=== PATIENT | female | born 1970 | race Caucasian/White ===

== ENCOUNTER 2017-05-27 01:46 | Inpatient (IN) | payer OTHER ==
[~2017-05-27 01:46] MED LIST: BUPR150CR PO; BUSP15TA PO; CYMB30CA PO; ESTR2TAB4 PO; GABA800T PO; LEVO75TA3 PO; METH500T3 PO; METO50TA PO; MOBI15TA PO; OMEP40CA2 PO; PRIN20TA2 PO; REST30CA PO; TRAZ100T5 PO; ZYRT10CA PO
[2017-05-27 01:59] VITALS: O2SAT 99
[2017-05-27 03:00] VITALS: BP 160/92; PULSE 80; RESP 16; O2SAT 98
[2017-05-27] MEDS ORDERED: DIPHTH/TETANUS/ACEL PERTUSSIS (BOOSTER) 0.5 ML VIAL/PFS IM ONE ×2 (04:06→07:03)
[2017-05-27] MEDS ORDERED: SODIUM CHLOR 0.9% 1000 ML INJ 1,000 ML IV ONE (04:15)
[2017-05-27] MEDS ORDERED: ONDANSETRON HCL 4 MG/2 ML VIAL IV ONE ×2 (04:15→07:15)
[2017-05-27] MEDS ORDERED: MORPHINE SULFATE 4 MG/ML INJ IV ONE (04:15)
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
[2017-05-27 04:50] LABS: AUTOMATED NEUTROPHIL # 3.7 TH/MM3 (1.8-7.7); BASOPHIL % 0.4 % (0.0-2.0); EOSINOPHIL # 0.2 TH/MM3 (0-0.4); EOSINOPHIL % 2.7 % (0.0-4.0); HEMATOCRIT 39.4 % (35.0-46.0); HEMO FLAGS DIFF FINAL; LYMPH % 46.6 % (9.0-44.0); LYMPHOCYTE # 3.9 TH/MM3 (1.0-4.8); MEAN CELL VOLUME 90.9 FL (80.0-100.0); MEAN CORPUSCULAR HEMOGLOBIN 30.5 PG (27.0-34.0); MEAN CORPUSCULAR HGB CONC 33.6 % (32.0-36.0); MONO % 5.9 % (0.0-8.0); NEUT % 44.4 % (16.0-70.0); PLATELET COUNT 312 TH/MM3 (150-450); RED BLOOD COUNT 4.34 MIL/MM3 (4.00-5.30); RED CELL DISTRIBUTION WIDTH 13.9 % (11.6-17.2); WHITE BLOOD COUNT 8.4 TH/MM3 (4.0-11.0)
[2017-05-27] MEDS ORDERED: METO50TA PO (04:57)
[2017-05-27] MEDS ORDERED: LISI40TA PO (04:57)
[2017-05-27] MEDS ORDERED: XANA1TAB2 PO (04:57)
[2017-05-27] MEDS ORDERED: TRAZ50TA12 PO (04:57)
[2017-05-27] MEDS ORDERED: OMEP40CA2 PO (04:57)
[2017-05-27] MEDS ORDERED: CLON0.1T PO (04:57)
[2017-05-27] MEDS ORDERED: ESTR2TAB PO (04:57)
[2017-05-27] MEDS ORDERED: TEMA7.5C PO (04:57)
[2017-05-27] MEDS ORDERED: GABA300C5 PO (04:57)
[2017-05-27] MEDS ORDERED: LEVO75TA3 PO (04:57)
[2017-05-27] MEDS ORDERED: LORazepam 2 MG/ML VIAL IV PUSH ONE (05:00)
[2017-05-27 05:06] LABS: PROTHROMBIN TIME - PATIENT 10.5 SEC (9.8-11.6)
[2017-05-27 05:38] LABS: ALCOHOL 67 MG/DL (0-5)
[2017-05-27 05:40] LABS: I-STAT SODIUM 143 MMOL/L (138-146)
[2017-05-27 07:15] VITALS: BP 193/91; PULSE 73; RESP 16; O2SAT 100
[2017-05-27] MEDS ORDERED: METOPROLOL SUCCINATE 50 MG EXTENDED RELEASE TAB PO ONE (07:15)
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
[2017-05-27 12:00] VITALS: BP 164/78; PULSE 70; RESP 16
[2017-05-27] MEDS ORDERED: MAGNESIUM HYDROXIDE SUSP 30 ML CUP PO PRN (16:45)
[2017-05-27] MEDS ORDERED: ACETAMINOPHEN 325 MG TAB PO PRN (16:45)
[2017-05-27] MEDS ORDERED: LORazepam 2 MG/ML VIAL IM PRN (16:45)
[2017-05-27] MEDS ORDERED: ALUMINUM/MAGNESIUM/SIMETH 30 ML CUP PO PRN (16:45)
[2017-05-27] MEDS ORDERED: LORazepam 1 MG TAB PO PRN (16:45)
[2017-05-27] MEDS ORDERED: TEMAZEPAM 7.5 MG CAP PO PRN (16:45)
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
[2017-05-27] MEDS ORDERED: MELOXICAM 7.5 MG TAB PO ONE (18:00)
[2017-05-27 18:16] VITALS: BP 180/98; PULSE 73; RESP 16; O2SAT 98
[2017-05-27 18:31] VITALS: BP 180/99
[2017-05-27] MEDS: cloNIDine HCL 0.1 MG TAB PO SCH (21:00)
[2017-05-27] MEDS: GABAPENTIN 300 MG CAP PO SCH (21:00)
[2017-05-27] MEDS: METOPROLOL TARTRATE 50 MG TAB PO SCH (21:00)
[2017-05-27] MEDS: QUEtiapine FUMARATE 200 MG TAB PO SCH (21:00)
[2017-05-28] MEDS: LEVOTHYROXINE SODIUM 75 MCG TAB PO SCH (05:24)
[2017-05-28 05:37] VITALS: BP 145/83; PULSE 70; RESP 18; TEMP 97.2; O2SAT 99
[2017-05-28] MEDS: METOPROLOL TARTRATE 50 MG TAB PO SCH ×2 (09:39→20:13)
[2017-05-28] MEDS: PANTOPRAZOLE SOD 40 MG DELAYED RELEASE TAB PO SCH (09:39)
[2017-05-28] MEDS: LISINOPRIL 20 MG TAB PO SCH (09:39)
[2017-05-28] MEDS: MELOXICAM 7.5 MG TAB PO SCH (09:39)
[2017-05-28] MEDS: cloNIDine HCL 0.1 MG TAB PO SCH ×2 (09:39→20:13)
[2017-05-28] MEDS: ESTRADIOL 1 MG TAB PO SCH (09:40)
[2017-05-28] MEDS: ALPRAZolam 1 MG TAB PO PRN ×2 (10:07→23:40)
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
[2017-05-28 13:48] LABS: AUTOMATED NEUTROPHIL # 7.6 TH/MM3 (1.8-7.7); BASOPHIL # 0.1 TH/MM3 (0-0.2); BASOPHIL % 0.8 % (0.0-2.0); EOSINOPHIL # 0.3 TH/MM3 (0-0.4); EOSINOPHIL % 2.2 % (0.0-4.0); HEMATOCRIT 39.7 % (35.0-46.0); HEMO FLAGS DIFF FINAL; LYMPH % 32.1 % (9.0-44.0); LYMPHOCYTE # 4.1 TH/MM3 (1.0-4.8); MEAN CELL VOLUME 91.9 FL (80.0-100.0); MEAN CORPUSCULAR HEMOGLOBIN 30.4 PG (27.0-34.0); MONO % 5.7 % (0.0-8.0); NEUT % 59.2 % (16.0-70.0); PLATELET COUNT 318 TH/MM3 (150-450); RED BLOOD COUNT 4.32 MIL/MM3 (4.00-5.30); WHITE BLOOD COUNT 12.8 TH/MM3 (4.0-11.0)
[2017-05-28 14:09] LABS: ANION GAP 8 MEQ/L (5-15); AST (GOT) 15 U/L (15-37); BICARBONATE 24.1 MEQ/L (21.0-32.0); BLOOD UREA NITROGEN 6 MG/DL (7-18); CHLORIDE 107 MEQ/L (98-107); GLOMERULAR FILTRATION RATE 37 ML/MIN (>89); POTASSIUM 3.9 MEQ/L (3.5-5.1); SODIUM (NA) 139 MEQ/L (136-145)
[2017-05-28 14:37] LABS: ALKALINE PHOSPHATASE 98 U/L (45-117); ALT (GPT) 16 U/L (10-53); HDL CHOLESTEROL 39.3 MG/DL (40.0-60.0); LDL CHOLESTEROL 92 MG/DL (0-99); TOTAL BILIRUBIN ADULT 0.4 MG/DL (0.2-1.0)
[2017-05-28 17:49] VITALS: BP 169/80; PULSE 68; RESP 19; TEMP 97.9; O2SAT 98
[2017-05-28] MEDS: QUEtiapine FUMARATE 200 MG TAB PO SCH (20:13)
[2017-05-28] MEDS: GABAPENTIN 300 MG CAP PO SCH (20:13)
[2017-05-29] MEDS: LEVOTHYROXINE SODIUM 75 MCG TAB PO SCH (05:29)
[2017-05-29 05:30] VITALS: BP 131/79; PULSE 71; RESP 16; TEMP 97.9; O2SAT 100
[2017-05-29] MEDS: MELOXICAM 7.5 MG TAB PO SCH (09:15)
[2017-05-29] MEDS: METOPROLOL TARTRATE 50 MG TAB PO SCH ×2 (09:16→20:33)
[2017-05-29] MEDS: PANTOPRAZOLE SOD 40 MG DELAYED RELEASE TAB PO SCH (09:16)
[2017-05-29] MEDS: ESTRADIOL 1 MG TAB PO SCH (09:16)
[2017-05-29] MEDS: LISINOPRIL 20 MG TAB PO SCH (09:17)
[2017-05-29] MEDS: cloNIDine HCL 0.1 MG TAB PO SCH ×2 (09:17→20:33)
[2017-05-29 10:35] LABS: HEMOGLOBIN A1a 0.6 %; HEMOGLOBIN A1b 1.6 %; HEMOGLOBIN Ao 86.6 %; HEMOGLOBIN LA1C 1.9 %; HEMOGLOBIN P3 3.2 %
[2017-05-29] MEDS: ALPRAZolam 1 MG TAB PO PRN ×2 (13:59→22:46)
[2017-05-29 17:03] VITALS: BP 121/80; PULSE 60; RESP 18; TEMP 97.5; O2SAT 98
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
[2017-05-29] MEDS: GABAPENTIN 300 MG CAP PO SCH (20:33)
[2017-05-29] MEDS: QUEtiapine FUMARATE 200 MG TAB PO SCH (20:33)
[2017-05-30] MEDS: LEVOTHYROXINE SODIUM 75 MCG TAB PO SCH (06:11)
[2017-05-30 06:31] VITALS: BP 145/70; PULSE 52; RESP 16; TEMP 98.6
[2017-05-30 06:35] VITALS: BP 148/100; PULSE 69; RESP 18; TEMP 97.6; O2SAT 97
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
[2017-05-30] MEDS: PANTOPRAZOLE SOD 40 MG DELAYED RELEASE TAB PO SCH (09:13)
[2017-05-30] MEDS: METOPROLOL TARTRATE 50 MG TAB PO SCH ×2 (09:13→21:18)
[2017-05-30] MEDS: MELOXICAM 7.5 MG TAB PO SCH (09:13)
[2017-05-30] MEDS: cloNIDine HCL 0.1 MG TAB PO SCH ×2 (09:13→21:18)
[2017-05-30] MEDS: LISINOPRIL 20 MG TAB PO SCH (09:13)
[2017-05-30] MEDS: ESTRADIOL 1 MG TAB PO SCH (09:14)
[2017-05-30 10:52] LABS: HEMATOCRIT 41.7 % (35.0-46.0); MEAN CELL VOLUME 92.4 FL (80.0-100.0); MEAN CORPUSCULAR HGB CONC 33.5 % (32.0-36.0); PLATELET COUNT 247 TH/MM3 (150-450); RED BLOOD COUNT 4.52 MIL/MM3 (4.00-5.30); RED CELL DISTRIBUTION WIDTH 13.8 % (11.6-17.2); REVIEW FLAG FINAL; WHITE BLOOD COUNT 10.1 TH/MM3 (4.0-11.0)
[2017-05-30 11:05] LABS: BICARBONATE 26.2 MEQ/L (21.0-32.0); POTASSIUM 4.2 MEQ/L (3.5-5.1)
--- NOTE | 2017-05-30 15:15 | HHI.PYPN ---
Subjective Remarks Patient was seen and case discussed with nursing. Patient is labile and crying , perseverative that her medical medications are not being given appropriately. Chief complaint is pain. Continues to minimize her suicide attempt. Eating and sleeping well. Behaving well on the unit. Denies suicidal homicidal ideation intent or plan Objective Alert: Yes [place]: Person, Place, Date, Situation Mood: Anxious Affect: Labile Memory Intact: Immediate, Recent, Remote Hallucinations: Other Delusions: No Delusion Type: Other Suicidal: Intent, Plan (denies), Ideation (denies) Homicidal: Ideation (denies) Insight/Judgment Poor Labs Test 05/30/17 09:51 White Blood Count 10.1 TH/MM3 Red Blood Count 4.52 MIL/MM3 Hemoglobin 14.0 GM/DL Hematocrit 41.7 % Mean Corpuscular Volume 92.4 FL Mean Corpuscular Hemoglobin 31.0 PG Mean Corpuscular Hemoglobin Concent 33.5 % Red Cell Distribution Width 13.8 % Platelet Count 247 TH/MM3 Mean Platelet Volume 7.8 FL Blood Urea Nitrogen 7 MG/DL Creatinine 0.87 MG/DL Random Glucose 80 MG/DL Calcium Level 8.8 MG/DL Sodium Level 136 MEQ/L Potassium Level 4.2 MEQ/L Chloride Level 104 MEQ/L Carbon Dioxide Level 26.2 MEQ/L Anion Gap 6 MEQ/L Estimat Glomerular Filtration Rate 56 ML/MIN Vitals/IOs Vital Signs Date Time Temp Pulse Resp B/P (MAP) Pulse Ox O2 Delivery O2 Flow Rate FiO2 05/30/17 06:35 97.6 69 18 148/100 (116) 97 05/27/17 18:16 Room Air 05/27/17 03:00 2.00 Assessment & Plan Problem List: (1) Adjustment disorder with depressed mood ICD Codes: F43.21 - Adjustment disorder with depressed mood Status: Acute Assessment & Plan Will call the pharmacy and obtain medication list and perform a reconciliation. Neosporin for Taser bryson Justification for Cont. Inpt. Patient would decompensate in a less restrictive setting Chris Mathis DO May 30, 2017 15:15
[2017-05-30] MEDS: DULoxetine HCl DR 30 MG CAP PO SCH (15:30)
[2017-05-30] MEDS: NEOMYCIN/POLYMYXIN/BACITRACIN OINT 15 GM TUBE TOPICAL SCH (16:00)
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
[2017-05-30 17:40] VITALS: BP 141/100; PULSE 79; RESP 17; TEMP 97.5; O2SAT 97
[2017-05-30] MEDS: QUEtiapine FUMARATE 200 MG TAB PO SCH (21:17)
[2017-05-30] MEDS: ALPRAZolam 1 MG TAB PO PRN (21:18)
[2017-05-30] MEDS: METHOCARBAMOL 500 MG TAB PO SCH (21:18)
[2017-05-30] MEDS: GABAPENTIN 300 MG CAP PO SCH (21:18)
[2017-05-31] MEDS: LEVOTHYROXINE SODIUM 75 MCG TAB PO SCH (05:40)
[2017-05-31] MEDS: METHOCARBAMOL 500 MG TAB PO SCH ×3 (05:40→21:31)
[2017-05-31] MEDS: ALPRAZolam 1 MG TAB PO PRN ×3 (05:42→23:49)
[2017-05-31 06:12] VITALS: BP 172/83; PULSE 71; RESP 16; TEMP 97.7; O2SAT 98
[2017-05-31] MEDS: DULoxetine HCl DR 30 MG CAP PO SCH (08:39)
[2017-05-31] MEDS: ESTRADIOL 1 MG TAB PO SCH (08:39)
[2017-05-31] MEDS: cloNIDine HCL 0.1 MG TAB PO SCH ×2 (08:39→21:30)
[2017-05-31] MEDS: METOPROLOL TARTRATE 50 MG TAB PO SCH ×2 (08:39→21:30)
[2017-05-31] MEDS: PANTOPRAZOLE SOD 40 MG DELAYED RELEASE TAB PO SCH (08:40)
[2017-05-31] MEDS: MELOXICAM 7.5 MG TAB PO SCH (08:40)
[2017-05-31] MEDS: NEOMYCIN/POLYMYXIN/BACITRACIN OINT 15 GM TUBE TOPICAL SCH (09:00)
[2017-05-31] MEDS: LISINOPRIL 20 MG TAB PO SCH (09:00)
[2017-05-31 17:22] VITALS: BP_SYST 189; BP_SYST 193; BP_DIAS 86; BP_DIAS 96; PULSE 62; RESP 18; TEMP 97.9; O2SAT 98
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
[2017-05-31] MEDS: QUEtiapine FUMARATE 200 MG TAB PO SCH (21:30)
[2017-05-31] MEDS: GABAPENTIN 300 MG CAP PO SCH (21:31)
[2017-06-01] MEDS: METHOCARBAMOL 500 MG TAB PO SCH ×3 (05:45→21:44)
[2017-06-01] MEDS: LEVOTHYROXINE SODIUM 75 MCG TAB PO SCH (05:46)
[2017-06-01 06:08] VITALS: BP 122/78; PULSE 63; RESP 18; TEMP 98.1; O2SAT 98
[2017-06-01] MEDS: MELOXICAM 7.5 MG TAB PO SCH (08:51)
[2017-06-01] MEDS: ESTRADIOL 1 MG TAB PO SCH (08:51)
[2017-06-01] MEDS: METOPROLOL TARTRATE 50 MG TAB PO SCH ×2 (08:51→21:44)
[2017-06-01] MEDS: cloNIDine HCL 0.1 MG TAB PO SCH ×2 (08:52→21:44)
[2017-06-01] MEDS: PANTOPRAZOLE SOD 40 MG DELAYED RELEASE TAB PO SCH (08:52)
[2017-06-01] MEDS: LISINOPRIL 20 MG TAB PO SCH (08:52)
[2017-06-01] MEDS: DULoxetine HCl DR 20 MG CAP PO SCH (08:52)
[2017-06-01] MEDS: NEOMYCIN/POLYMYXIN/BACITRACIN OINT 15 GM TUBE TOPICAL SCH (09:00)
[2017-06-01] MEDS: ALPRAZolam 1 MG TAB PO PRN ×2 (09:52→17:18)
--- NOTE | 2017-06-01 17:13 | HHI.PYPN ---
Subjective Remarks Patient seen for follow-up, chart reviewed. Patient found lying in hospital bed with able to wake up to interact with interview today. Patient states that she is feeling a bit tired but reports that she had not been in bed all day had attended groups today as well. Patient states she is feeling "a little better" , reports sleeping well, adhering to treatment, attending groups and tolerating medications well. Patient states that she continues to feel "a little sad" as she has "a lot to deal with". Patient spoke with mother earlier today and is glad that she is doing well at home. Patient stated that she would like to be able to go home but understands that her mood continues to need consistent stabilization prior to discharge. At this time patient denies any suicidality. Review of Systems Except as stated in HPI: all other systems reviewed are Neg Objective Alert: Yes [place]: Person, Place, Date, Situation Mood: Anxious Affect: Labile Memory Intact: Immediate, Recent, Remote Hallucinations: Other Delusions: No Delusion Type: Other Suicidal: Intent, Plan (denies), Ideation (denies) Homicidal: Ideation (denies) Insight/Judgment Limited insight, fair impulse control and judgment Vitals/IOs Vital Signs Date Time Temp Pulse Resp B/P (MAP) Pulse Ox O2 Delivery O2 Flow Rate FiO2 06/01/17 06:08 98.1 63 18 122/78 (93) 98 Assessment & Plan Problem List: (1) Adjustment disorder with depressed mood ICD Codes: F43.21 - Adjustment disorder with depressed mood Status: Acute Assessment & Plan Patient at this time continues to have depressed mood although reports feeling better. Patient continues to endorse chronic pain which she understands this medical issue she will need to continue follow up for. We will increase quetiapine to 250 mg by mouth at bedtime for mood stabilization, continue duloxetine 40 mg by mouth daily for depressive symptoms. Continue to monitor for medication response and adverse drug reactions. Continue to encourage patient urges admitted groups and activities while on the unit. Discharge planning in progress. Will have food service representative from [employer] meet with patient tomorrow morning to be able to outpatient connected to services upon discharge. Justification for Cont. Inpt. Patient at risk for further decompensation if at a lower level of care Cody Mullen MD Jun 01, 2017 17:13
[2017-06-01 18:37] VITALS: BP 163/85; PULSE 73; RESP 18; TEMP 98.9; O2SAT 98
[2017-06-01] MEDS: QUEtiapine FUMARATE 25 MG TAB PO SCH (21:44)
[2017-06-01] MEDS: GABAPENTIN 300 MG CAP PO SCH (21:44)
[2017-06-01] MEDS: QUEtiapine FUMARATE 200 MG TAB PO SCH (21:44)
[2017-06-02] MEDS: ALPRAZolam 1 MG TAB PO PRN ×3 (00:44→22:16)
[2017-06-02 06:10] VITALS: BP 111/60; PULSE 63; RESP 16; TEMP 98; O2SAT 96
[2017-06-02] MEDS: LEVOTHYROXINE SODIUM 75 MCG TAB PO SCH (06:17)
[2017-06-02] MEDS: METHOCARBAMOL 500 MG TAB PO SCH ×3 (06:17→21:13)
[2017-06-02] MEDS: NEOMYCIN/POLYMYXIN/BACITRACIN OINT 15 GM TUBE TOPICAL SCH ×2 (09:00→21:14)
[2017-06-02] MEDS: ESTRADIOL 1 MG TAB PO SCH (09:28)
[2017-06-02] MEDS: DULoxetine HCl DR 20 MG CAP PO SCH (09:28)
[2017-06-02] MEDS: METOPROLOL TARTRATE 50 MG TAB PO SCH ×2 (09:28→21:13)
[2017-06-02] MEDS: LISINOPRIL 20 MG TAB PO SCH (09:28)
[2017-06-02] MEDS: PANTOPRAZOLE SOD 40 MG DELAYED RELEASE TAB PO SCH (09:28)
[2017-06-02] MEDS: cloNIDine HCL 0.1 MG TAB PO SCH ×2 (09:29→21:13)
[2017-06-02] MEDS: MELOXICAM 7.5 MG TAB PO SCH (09:29)
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
--- NOTE | 2017-06-02 15:05 | HHI.PYPN ---
Subjective Remarks The patient is seen for follow-up, chart reviewed. Patient ffound walking around the unit, noted to be calm and cooperative for interview today. Patient noted to be more engaging that her affect, stated that her chronic pain slightly better. She states she continues whether her blood pressure added at times becomes elevated due to her pain. With that she saw hospitals recently which had adjusted her meds. Patient states that at this time she feels "fine" , reports having gone to groups and activities, also mentions having been visited by a friend yesterday which went well. She states that she spoke with her mother over the phone which also went well. Patient states that she feels ready to go home, plans on making her mental health a priority and plans on following up with outpatient services as well as therapist for continuity of care. Patient states states that she feeling much better, denies any suicidal ideations, continues to feel slightly worried about getting her life in order but states that she is hopeful with the support of outpatient services to be able to do this. Patient agrees to be with [facility] sales representative womens health on the unit to connect with services post discharge. Review of Systems Except as stated in HPI: all other systems reviewed are Neg Objective Alert: Yes [place]: Person, Place, Date, Situation Mood: Calm Affect: Appropriate Memory Intact: Immediate, Recent, Remote Hallucinations: Other Delusions: No Delusion Type: Other Suicidal: Intent, Plan (denies), Ideation (denies) Homicidal: Ideation (denies) Insight/Judgment Improve insight, impulse control and judgment Vitals/IOs Vital Signs Date Time Temp Pulse Resp B/P (MAP) Pulse Ox O2 Delivery O2 Flow Rate FiO2 06/02/17 06:10 98.0 63 16 111/60 (77) 96 Intake and Output 06/02/17 06/02/17 06/03/17 08:00 16:00 00:00 Intake Total 600 ml Balance 600 ml Assessment & Plan Problem List: (1) Adjustment disorder with depressed mood ICD Codes: F43.21 - Adjustment disorder with depressed mood Status: Acute Assessment & Plan Patient at this time appears to be improving with current treatment regimen, no longer having suicidal ideations. Patient is more future oriented now, looking forward to returning back home with her parents and agreeing to continue outpatient follow-up for continuity of care. Continue current treatment. Patient likely be discharged tomorrow with outpatient follow-up currently in process of being arranged. Discharge planning in progress. Justification for Cont. Inpt. At risk for decompensation if at lower level of care. Cody Mullen MD Jun 02, 2017 15:05
[2017-06-02] MEDS: QUEtiapine FUMARATE 25 MG TAB PO SCH (21:13)
[2017-06-02] MEDS: GABAPENTIN 300 MG CAP PO SCH (21:14)
[2017-06-02] MEDS: QUEtiapine FUMARATE 200 MG TAB PO SCH (21:14)
[2017-06-03 05:00] VITALS: BP 125/88; PULSE 83; RESP 16; TEMP 97.8; O2SAT 100
[2017-06-03] MEDS: METHOCARBAMOL 500 MG TAB PO SCH ×2 (06:02→15:04)
[2017-06-03] MEDS: LEVOTHYROXINE SODIUM 75 MCG TAB PO SCH (06:02)
[2017-06-03] MEDS: PANTOPRAZOLE SOD 40 MG DELAYED RELEASE TAB PO SCH (08:49)
[2017-06-03] MEDS: MELOXICAM 7.5 MG TAB PO SCH (08:49)
[2017-06-03] MEDS: cloNIDine HCL 0.1 MG TAB PO SCH (08:49)
[2017-06-03] MEDS: LISINOPRIL 20 MG TAB PO SCH (08:49)
[2017-06-03] MEDS: DULoxetine HCl DR 20 MG CAP PO SCH (08:49)
[2017-06-03] MEDS: ESTRADIOL 1 MG TAB PO SCH (08:50)
[2017-06-03] MEDS: METOPROLOL TARTRATE 50 MG TAB PO SCH (08:50)
[2017-06-03] MEDS ORDERED: NEUR300C PO (10:29)
[2017-06-03] MEDS ORDERED: DULO-39 PO (10:29)
[2017-06-03] MEDS ORDERED: PANT40TA3 PO (10:29)
[2017-06-03] MEDS ORDERED: METH500T3 PO (10:29)
[2017-06-03] MEDS ORDERED: LISI40TA PO (10:29)
[2017-06-03] MEDS ORDERED: TRIPOIN TOPICAL (10:29)
[2017-06-03] MEDS ORDERED: METO-309 PO (10:29)
[2017-06-03] MEDS ORDERED: ESTR2TAB PO (10:29)
[2017-06-03] MEDS ORDERED: QUET5TAB PO (10:29)
[2017-06-03] MEDS ORDERED: CLON.1 PO (10:29)
[2017-06-03] MEDS ORDERED: LEVO.075 PO (10:29)
[2017-06-03] MEDS ORDERED: MELO7.5T4 PO (10:29)
[2017-06-03] MEDS ORDERED: QUET1TAB9 PO (10:29)
--- NOTE | 2017-06-03 10:31 | HHI.DS ---
Psychiatry Discharge Summary Inpatient Psychiatric care?: Yes Advance Directive: No Reason Not Provided: refused Mental Health AdvanceDirective: No Health Care Proxy: No Admission Admission Date May 27, 2017 at 16:40 Admission Diagnosis: (1) Adjustment disorder with depressed mood ICD Code: F43.21 - Adjustment disorder with depressed mood Brief History The patient is a 47-year-old woman, single, unemployed, domicile with her parents, with psychiatric history of depression, alcohol and cannabis use disorder, 1 previous psychiatric hospitalizations, 1 previous suicidal attempt, she is on Seroquel 200 mg and Cymbalta 60 mg prescribed by PCP, medical history of fibromyalgia, chronic pain, hypertension, who was admitted in the hospital from the ER by Dr. Flores : "Patient is registered as a Lyndsey Olson but she is known to this physician. Patient was born in 1969 and her name is Joy Gutiérrez. She is approximately 50 years of age and was seen under a [employer] act for stabbing herself on the left side of her chest. Apparently when the officer was on the scene, patient attempted to stab herself a second time in the chest and the officer had to prevent her from doing so. Patient has been [employer] acted previously for suicidal comments.She describes multiple symptoms of depression including depressed mood, anxiety, insomnia, diminished self-esteem, suicidality , diminished energy, social withdrawal, anhedonia, as well as suicidal behavior. According to the history, patient is having to take care of parents, lost her daughter, has fibromyalgia with chronic pain and is unable to sleep." Today on psychiatric evaluation patient is found sleeping, at the beginning oppositional and irritable, but with redirection became more cooperative. Patient says that yesterday he felt overwhelmed, she was depressed, "became blind"wanted to kill myself. Patient refused to talk about the circumstances of her depression at this moment. However, she says that she does not feel suicidal anymore, her mood is improved, she denies homicidal ideation, she denies visual and auditory hallucinations. Reports occasional use of cannabis and alcohol. Tobacco Use In Past 30 Days: No Tobacco Past 30 Days Alcohol Use: 2-4 Times Per Month Hospital Course The patient is a 47-year-old woman, single, unemployed, domicile with her parents, with psychiatric history of depression, alcohol and cannabis use disorder, 1 previous psychiatric hospitalizations, 1 previous suicidal attempt, who was brought in under [employer] act after stabbing herself in the chest. Patient was admitted to the inpatient psychiatry unit for stabilization where she was continued on quetiapine and celexa which were uptitrated to 250mg pO HS and 40mg PO daily respectively. Patient responded well to treatment, mood stabilized, no longer endorsing feeling sad or depressed nor having suicidal ideation. Upon discharge patient reported wanting to prioritize her mental health first, adhering to her treatment regimen and follow up f or continuity of care. Patient advised to call 911 or go to ED in case of emergency. Patient agrees with plan. Results Blood Pressure 125 / 88 Vital Signs Date Time Temp Pulse Resp B/P (MAP) Pulse Ox O2 Delivery O2 Flow Rate FiO2 06/03/17 05:00 97.8 83 16 125/88 (100) 100 Laboratory Results Test 05/28/17 13:19 Cholesterol Level 176 MG/DL (120-200) HDL Cholesterol 39.3 MG/DL (40.0-60.0) Hemoglobin A1c 5.2 % (4.3-6.0) LDL Cholesterol 92 MG/DL (0-99) Triglycerides Level 222 MG/DL (42-150) Summary of Procedures None Imaging Last Impressions Chest X-Ray 05/27/17 0000 Signed Impressions: Service Date/Time: Saturday, May 27, 2017 01:38 - CONCLUSION: No acute cardiopulmonary process. Jak Julien MD Pending results at discharge: No Medications # of Antipsychotic meds at D/C: 1 Approp Antipsych med options 1 - Minimum of three failed multiple trials of monotherapy. 2 - Documented plan to taper to monotherapy due to previous use of multiple meds OR cross-taper in progress at D/C. 3 - Documentation of augmentation of Clozapine. 4 - Justification other than those listed in allowable values 1-3, document here : Discharge Discharge Date: Jun 03, 2017 Discharge Diagnosis: (1) Adjustment disorder with depressed mood Diagnosis: Principal ICD Code: F43.21 - Adjustment disorder with depressed mood Status: Acute Mental Status Exam at Disch Appearance/Behavior: appears stated age, in casual clothing, calm and cooperative with interview. Fair eye contact Speech: normal rate, tone and prosody Mood: "great" Affect: euthymic TP: linear, future oriented TC: denies SI, HI, AVH or delusions Insight/Impulse control/judgment: fair A&O x3 Pt Condition on Discharge: Stable Discharge Disposition: Discharge Home Discharge Instructions Diet Instructions: Heart Healthy Diet Activities you can perform: Regular-No Restrictions Discharge Time > 30 minutes Discharge/Advance Care Plan Health Problems: (1) Adjustment disorder with depressed mood Goals to promote your health * To prevent worsening of your condition and complications * To maintain your health at the optimal level Directions to meet your goals Take your medications as prescribed Follow your dietary instruction Follow activity as directed Keep your appointments as scheduled Take your immunizations and boosters as scheduled If your symptoms worsen call your PCP, if no PCP go to Urgent Care Center or Emergency Room For 24/ questions related to your inpatient stay or results of tests pending at discharge, please contact Dr. Cody Mullen at Smoking is Dangerous to Your Health. Avoid second hand smoking Cody Mullen MD Jun 03, 2017 10:31
== END 2017-06-03 16:45 | disposition home or self-care (01) | DRG 881 ==
LOC: NEPE 01:46 → EDBD 16:40 → NEDA 16:40 → MERGE 16:40 → H270 19:24 → H260 05-29 21:05
PROVIDERS: ADMIT Student in an Organized Health Care Education/Training Program; ATTEND Student in an Organized Health Care Education/Training Program
PROC: 0HQ5XZZ Repair Chest Skin, External Approach (ICD-10-PCS; principal; 2017-05-27)
DX: F43.21 Adjustment disorder with depressed mood (principal); S21.112A Laceration without foreign body of left front wall of thorax without penetration into thoracic cavity, initial encounter; M79.7 Fibromyalgia; I10 Essential (primary) hypertension; E03.9 Hypothyroidism, unspecified; F17.210 Nicotine dependence, cigarettes, uncomplicated; M19.90 Unspecified osteoarthritis, unspecified site; F41.1 Generalized anxiety disorder; X78.9XXA Intentional self-harm by unspecified sharp object, initial encounter; G47.00 Insomnia, unspecified
CPT/HCPCS: 12001; 71010; 80048; 80053; 80061; 80307; 82306; 82435; 82565; 82607; 82947; 83036; 84132; 84295; 84443; 84520; 85025; 85027; 85610; 86850; 86900; 86901; 96374; 96375; 99291; G0390; J2060